=== PATIENT | male | born 2000 | race Caucasian/White ===

== ENCOUNTER 2024-02-02 19:38 | Emergency (ER) | payer SELFPAY ==
[~2024-02-02] VITALS: Ht 165.1 cm; Wt 57.0 kg
[2024-02-02 19:46] VITALS: O2SAT 98
[2024-02-02] MEDS: ACETAMINOPHEN 325MG TABLET PO ONE (21:27)
[2024-02-02 22:00] VITALS: TEMP 98.3
[2024-02-02] MEDS ORDERED: NAPR220C61 MT (22:42)
[2024-02-02] MEDS ORDERED: ACET-2708 MT (22:42)
[2024-02-02] MEDS: KETOROLAC 30MG/ML VIAL IV ONE (23:24)
[2024-02-02 23:38] VITALS: BP 133/77; PULSE 81; RESP 15
== END 2024-02-02 23:35 | disposition home or self-care (01) ==
LOC: ER 19:38
DX: S05.11XA Contusion of eyeball and orbital tissues, right eye, initial encounter (principal); V19.49XA Pedal cycle driver injured in collision with other motor vehicles in traffic accident, initial encounter; G89.11 Acute pain due to trauma; Y93.89 Activity, other specified; Y92.89 Other specified places as the place of occurrence of the external cause; Y99.8 Other external cause status
CPT/HCPCS: 99285; 70450; 96374; 70486; J1885